=== PATIENT | female | born 2000 | race Caucasian/White ===

== ENCOUNTER 2022-11-01 20:46 | Emergency (ER) | payer MEDICAID, SELFPAY ==
[2022-11-01 20:46] VITALS: BP 135/74; PULSE 112; RESP 18; TEMP 36.6; O2SAT 100; BMI 33.3
--- NOTE | 2022-11-01 20:57 | ED_ITS ---
HPI - Abdominal Pain General: Chief Complaint: Abdominal Pain Stated Complaint: ABD PAIN Time Seen by Provider: 11/01/22 20:53 History of Present Illness: 22-year-old female comes in today with lower abdominal discomfort and pain along with fatigue. Patient also reports some changes in urine. Patient appears nontoxic. Patient appears in no pain. Patient's last menstrual cycle was 16 June. Patient is about 20 weeks . Patient reports no vaginal bleeding. Associated Symptoms: Reports dysuria; Denies constipation, diarrhea, fever(s), nausea and vomiting Review of Systems General: Reports: 10 or more systems reviewed and unremarkable except in HPI and below Const: Denies: fever(s) Card: Denies: chest pain Resp: Denies: dyspnea GI: Denies: nausea, vomiting, diarrhea or constipation : Reports: dysuria and urinary urgency Musc: Denies: neck pain or back pain Skin/Breast: Denies: rash Neuro: Denies: headache(s) Physical Exam Const: COMMON NORMALS: alert HENMT: COMMON NORMALS: normocephalic HEAD & SCALP: normocephalic Neck/C-Spine: COMMON NORMALS: full ROM Resp: COMMON NORMALS: normal respiratory effort and clear to auscultation bilaterally AUSCULTATION: clear to auscultation bilaterally Cardio: COMMON NORMALS: regular rate and regular rhythm RATE: regular rate RHYTHM: regular rhythm GI: COMMON NORMALS: Soft to palpation and non-tender PALPATION: Yes Soft to palpation : COMMON NORMALS: Yes no CVA tenderness BLADDER/KIDNEY EXAM: Yes no CVA tenderness OTHER: heart tones 150 Back/Pelvis: COMMON NORMALS: no CVA tenderness Extremity: COMMON NORMALS: no pedal edema Neuro: SENSORIUM/ORIENTATION: Yes alert Skin: COMMON NORMALS: turgor normal GENERAL SKIN EXAM: turgor normal Course Vital Signs: Vital signs: Vital Signs Temperature 98 F 11/01/22 20:46 Pulse Rate 112 H 11/01/22 20:46 Respiratory Rate 18 11/01/22 20:46 Blood Pressure 135/74 11/01/22 20:46 Pulse Oximetry 100 11/01/22 20:46 MDM - Abdominal Pain Medical Decision Making 22-year-old female comes in today with some lower abdominal pain and difficulty of urination. Patient is a 20 weeks . On exam patient is alert orien lara skin is warm and dry. Vital signs are normal. Differential diagnosis includes but not limited to premature labor, urinary tract infection, round ligament pain, abruptio placenta. Urinalysis had a increased number of white blood cells but a large amount of skin cells. CBC and CMP were unremarkable. heart tones 150. Patient had no abnormal vaginal bleeding or discharge. Since patient does endorse urinary tract infection symptoms with dysuria and frequency we will go ahead and treat with some cephalexin 250 twice a day for 7 days. Patient was given 1 dose in the ER tonight. Patient was encouraged drink plenty of water and fluids use acetaminophen for pain and follow-up with primary care or AUTOMATIC SPINNING LATHE SETTER for further instructions or return to the ER for worsening symptoms. Lab Data 11/01/22 21:00 11/01/22 21:00 Labs/Radiology: Laboratory Results WBC 11.30 10^3/uL (3.29-11.43) 11/01/22 21:00 RBC 4.64 10^6/uL (3.85-5.65) 11/01/22 21:00 Hgb 13.70 g/dL (11.27-16.99) 11/01/22 21:00 Hct 40.0 % (36-47) 11/01/22 21:00 MCV 86.2 fl (85-98) 11/01/22 21:00 MCH 29.5 pg (27-33) 11/01/22 21:00 MCHC 34.3 g/dL (30-55) 11/01/22 21:00 RDW 13.2 % (12.1-15.1) 11/01/22 21:00 Plt Count 251 10^3/cmm (157-399) 11/01/22 21:00 MPV 10.4 fL (7.4-10.4) 11/01/22 21:00 Neut % (Auto) 70.9 % 11/01/22 21:00 Lymph % (Auto) 18.9 % 11/01/22 21:00 [place] % (Auto) 8.0 % 11/01/22 21:00 Eos % (Auto) 1.6 % 11/01/22 21:00 Baso % (Auto) 0.3 % 11/01/22 21: Neut # (Auto) 8.02 10^3/uL (1.8-7.7) H 11/01/22 21:00 Lymph # (Auto) 2.1 10^3/uL (0.8-4.8) 11/01/22 21:00 [place] # (Auto) 0.9 10^3/uL (0.2-0.9) 11/01/22 21:00 Eos # (Auto) 0.2 10^3/uL (0.0-0.8) 11/01/22 21:00 Baso # (Auto) 0.0 10^3/uL (0.0-0.1) 11/01/22 21:00 Nucleated RBC % (auto) 0 % 11/01/22 21:00 Nucleated RBCs # 0.0 /100WBC 11/01/22 21:00 Sodium 138 mmol/L (136-145) 11/01/22 21:00 Potassium 4.1 mmol/L (3.5-5.1) 11/01/22 21:00 Chloride 104 mmol/L (98-107) 11/01/22 21:00 Carbon Dioxide 24 mmol/L (22-29) 11/01/22 21:00 Anion Gap 14.1 (5-19) 11/01/22 21:00 BUN 9 mg/dL (6-20) 11/01/22 21:00 Creatinine 0.5 mg/dL (0.5-0.9) 11/01/22 21:00 GFR Calculation 155.7 mL/min (90-130) H 11/01/22 21:00 Glucose 94 mg/dL (65-115) 11/01/22 21:00 Calculated Osmolality 284 mOsm/kg (285-295) L 11/01/22 21:00 Calcium 9.0 mg/dL (8.5-10.5) 11/01/22 21:00 Total Bilirubin 0.2 mg/dL (0.15-1.2) 11/01/22 21:00 AST 15 U/L (0-32) 11/01/22 21:00 ALT 12 U/L (0-33) 11/01/22 21:00 Alkaline Phosphatase 99 U/L (35-105) 11/01/22 21:00 Total Protein 7.1 g/dL (6.6-8.7) 11/01/22 21:00 Albumin 4.0 g/dL (3.5-5.2) 11/01/22 21:00 Globulin 3.1 g/dL (1.3-4.6) 11/01/22 21:00 Lipase 43 U/L (13-60) 11/01/22 21:00 Ser , Semi-Qnt 20091.00 mIU/mL 11/01/22 21:00 Urine Color Yellow (Yellow) 11/01/22 20:50 Urine Appearance Hazy (CLEAR) A 11/01/22 20:50 Urine pH 5 (5-7) 11/01/22 20:50 Ur Specific [place] 1.020 (1.005-1.030) 11/01/22 20:50 Urine Protein Trace (Negative) 11/01/22 20:50 Urine Glucose (UA) Norm (Normal) 11/01/22 20:50 Urine Ketones Negative (Negative) 11/01/22 20:50 Urine Blood Neg (Negative) 11/01/22 20:50 Urine Nitrate Negative (Negative) 11/01/22 20:50 Urine Bilirubin 1+ (Negative) H 11/01/22 20:50 Urine Urobilinogen Neg mg/dL (Negative) 11/01/22 20:50 Ur Leukocyte Esterase 1+ (Negative) H 11/01/22 20:50 Urine RBC Rare /hpf (0-2) 11/01/22 20:50 Urine WBC 0-4 /hpf (0-5) H 11/01/22 20:50 Ur Squamous Epith Cells 15-25 /hpf (0-5) H 11/01/22 20:50 Amorphous Sediment 2+ /hpf 11/01/22 20:50 Urine Bacteria 1+ /hpf (NONE) H 11/01/22 20:50 Urine Mucus 2+ /hpf 11/01/22 20:50 No radiology studies performed this visit EKG Data EKG 1: EKG interpretation date: 11/01/22 EKG interpretation time: 21:05 Prior EKG tracings: not available for review Interpretation: Mild sinus tachycardia at 110 bpm, regular rate, no ST elevation or ectopy is noted. No prior exam was available for comparison. Computer generated interpretation: Sinus tachycardia, minimal ST depression, abnormal rhythm EKG, unconfirmed report. Discharge Plan Discharge Patient Disposition: Home Clinical Impression: Dysuria during Qualifiers: Trimester: second trimester Qualified Code(s): O26.892 - Other specified related conditions, second trimester Qualifiers: Weeks of gestation: 20 weeks Qualified Code(s): Z3A.20 - 20 weeks gestation of Condition: Stable Prescriptions: New cephalexin 250 mg capsule 250 mg PO BID 7 Days Qty: 14 0RF Discharge Orders: Discharge ED (Routine); Ordered 11/01/22 Ordered By: Hugo Adame Discharge Diet: Usual diet Discharge Activity: Increase activity as tolerated Patient Instructions: Dysuria (ED) Activity Restrictions/Additional Instructions: Drink plenty of water and fluids. Take antibiotic cephalexin 250 mg twice a day for 7 days. Follow-up with primary care in 2 to 3 days for recheck. Return to ED for worsening symptoms such as high fever greater than 100.4, vaginal bleeding, inability to hold fluids down, no urine output within 8 hours, or new concerns. Stand Alone Forms: Work/School Release Coding Level of Care Code ED Analytical Lab Technician for Jerrica Doyle
[2022-11-01 21:18] LABS: Basophils % 0.3 %; Eosinophils # 0.2 10^3/uL (0.0-0.8); Eosinophils % 1.6 %; Lymphocytes # 2.1 10^3/uL (0.8-4.8); Lymphocytes % 18.9 %; Mean Corpuscular HGB Conc 34.3 g/dL (30-55); Mean Corpuscular Hemoglobin 29.5 pg (27-33); Mean Corpuscular Volume 86.2 fl (85-98); Mean Platelet Volume 10.4 fL (7.4-10.4); Monocytes # 0.9 10^3/uL (0.2-0.9); Neutrophils # 8.02 10^3/uL (1.8-7.7); Neutrophils % 70.9 %; Nucleated Red Blood Cells % 0 %; Platelet Count 251 10^3/cmm (157-399); Red Blood Count 4.64 10^6/uL (3.85-5.65); Red Cell Distribution Width 13.2 % (12.1-15.1)
[2022-11-01 21:46] LABS: Add Urine Microscopic? YES; Bilirubin Urine 1+ (Negative); Blood Urine Neg (Negative); Glucose Urine UA Norm (Normal); Ketones Urine Negative (Negative); Leukocyte Esterase Urine 1+ (Negative); Nitrate Urine Negative (Negative); Protein Urine Trace (Negative); Urine Appearance Hazy (CLEAR); Urine Color Yellow (Yellow); Urobilinogen Urine Neg (Negative); pH Urine 5 (5-7)
[2022-11-01 21:47] LABS: Add Urine Culture? No; Amorphous Sediment Urine 2+ /hpf; Bacteria Urine 1+ /hpf; Mucus Urine 2+ /hpf; RBC Urine RARE /hpf (0-2); Squamous Epithelial Cell Urine 15-25 /hpf (0-5); WBC Urine 0-4 /hpf (0-5)
[2022-11-01 21:51] LABS: Alanine Aminotransferase 12 U/L (0-33); Alkaline Phosphatase 99 U/L (35-105); Anion Gap 14.1 (5-19); Aspartate Amino Transferase 15 U/L (0-32); Blood Urea Nitrogen 9 mg/dL (6-20); Carbon Dioxide 24 mmol/L (22-29); Chloride 104 mmol/L (98-107); Globulin 3.1 g/dL (1.3-4.6); Glomerular Filtration Rate 155.7 mL/min (90-130); Glucose 94 mg/dL (65-115); Lipase 43 U/L (13-60); Osmolality Calculated 284 mOsm/kg (285-295); Potassium 4.1 mmol/L (3.5-5.1); Sodium 138 mmol/L (136-145); Total Bilirubin 0.2 mg/dL (0.15-1.2); Total Protein 7.1 g/dL (6.6-8.7)
[2022-11-01 22:11] VITALS: BP 102/63; PULSE 88; O2SAT 99
[2022-11-01] MEDS: cephALEXin 500 mg Capsule PO (22:15)
== END 2022-11-01 22:21 | disposition home or self-care (01) ==
PROVIDERS: Emergency Provider Nurse Practitioner Family
DX: O26.892 Other specified pregnancy related conditions, second trimester (principal); R30.0 Dysuria; Z3A.20 20 weeks gestation of pregnancy
CPT/HCPCS: 80053; 81001; 83690; 84702; 85025; 99283

== ENCOUNTER 2024-06-15 13:54 | Emergency (ER) | payer SELFPAY ==
[2024-06-15 13:55] VITALS: BP 104/70; PULSE 91; TEMP 36.6; O2SAT 98
[2024-06-15 14:18] LABS: Bilirubin Urine 2+ (Negative); Blood Urine 2+ (Negative); Glucose Urine UA Negative (Normal); Ketones Urine 4+ (Negative); Leukocyte Esterase Urine 2+ (Negative); Nitrate Urine Positive (Negative); Protein Urine 2+ (Negative); Urine Appearance Cloudy (CLEAR); Urine Color Dark Yellow (Yellow); pH Urine 5.5 (5-7)
--- NOTE | 2024-06-15 14:19 | W.ED.FEMALGU ---
HPI - Female Genitourinary General: Chief complaint: Urogenital-Female Stated complaint: Urinary Time Seen by Provider: 06/15/24 14:03 Source: patient Mode of arrival: ambulatory Limitations: no limitations History of Present Illness: 0 24-year-old female who states that over the last 2 days she has been having increasing dysuria along with some lower abdominal pain states pain sharp in nature when she urinates it mendoza and is foul-smelling she denies any discharge denies any fevers. Associated symptoms: Reports abdominal pain; Deny headache(s) or nausea Related Data Previous Rx's ?Medication ?Instructions ?Recorded cephalexin 500 mg capsule 500 mg PO TID 7 days #21 caps 06/15/24 naproxen 500 mg tablet (Naprosyn) 500 mg PO BID PRN pain #20 tabs 06/15/24 ondansetron 4 mg disintegrating 4 mg PO Q6H PRN nausea and 06/15/24 tablet vomiting #14 tabs Allergies Allergy/AdvReac Type Severity Reaction Status Date / Time Penicillins Allergy Unknown Verified 06/15/24 14:05 Review of Systems Const: Denies: fever(s), chills, body aches or change in appetite ENMT: Denies: throat pain or dental pain Card: Denies: chest pain Resp: Denies: dyspnea GI: Reports: abdominal pain; Denies: nausea, vomiting or diarrhea : Reports: dysuria Musc: Denies: neck pain or back pain Skin/Breast: Denies: rash Neuro: Denies: headache(s) Physical Exam Const: COMMON NORMALS: no acute distress, patient oriented x3 and healthy appearing HENMT: COMMON NORMALS: normocephalic and atraumatic HEAD & SCALP: normocephalic and atraumatic Eye: COMMON NORMALS: conjunctivae normal CONJUNCTIVA: Yes conjunctivae normal Neck/C-Spine: COMMON NORMALS: full ROM and supple Chest: COMMONS NORMALS: normal inspection of the chest Resp: COMMON NORMALS: normal respiratory effort Cardio: COMMON NORMALS: regular rate, regular rhythm and No murmurs present (Cardio) RATE: regular rate RHYTHM: regular rhythm GI: COMMON NORMALS: Normal to inspection, nondistended, normoactive bowel sounds present, Soft to palpation, non-tender and no masses PALPATION: Yes Soft to palpation Extremity: COMMON NORMALS: normal to inspection and full ROM Neuro: COMMON NORMALS: patient oriented x3, moves all extremities and no focal motor deficits Psych: COMMON NORMALS: mental status grossly normal, Normal thought process present and cooperative THOUGHT PROCESS: Normal thought process present Skin: COMMON NORMALS: no rashes or lesions noted and no wounds GENERAL SKIN EXAM: no rashes or lesions noted Course Vital Signs: Vital signs: Vital Signs Temperature 97.9 F 06/15/24 13:55 Pulse Rate 91 06/15/24 13:55 Blood Pressure 104/70 06/15/24 13:55 Pulse Oximetry 98 06/15/24 13:55 Oxygen Delivery Me thod Room Air 06/15/24 13:55 MDM - Female Medical Decision Making Patient presents here with dysuria does have a UTI abdominal exam is benign no signs of appendicitis will start her on Keflex she has to follow-up with her PCP return if worsening. Medical Records I reviewed the patient's medical records. Lab Data I reviewed the patient's lab results. 06/15/24 14:27 06/15/24 14:27 Laboratory Results WBC 9.67 10^3/uL (3.29-11.43) 06/15/24 14:27 RBC 4.98 10^6/uL (3.85-5.65) 06/15/24 14:27 Hgb 14.30 g/dL (11.27-16.99) 06/15/24 14:27 Hct 44.8 % (36-47) 06/15/24 14:27 MCV 90.0 fl (85-98) 06/15/24 14:27 MCH 28.7 pg (27-33) 06/15/24 14:27 MCHC 31.9 g/dL (30-55) 06/15/24 14:27 RDW 12.8 % (12.1-15.1) 06/15/24 14:27 Plt Count 267 10^3/cmm (157-399) 06/15/24 14:27 MPV 10.5 fL (7.4-10.4) H 06/15/24 14:27 Neut % (Auto) 68.8 % 06/15/24 14:27 Lymph % (Auto) 21.6 % 06/15/24 14:27 [place] % (Auto) 8.2 % 06/15/24 14:27 Eos % (Auto) 0.8 % 06/15/24 14:27 Baso % (Auto) 0.4 % 06/15/24 14:27 Neut # (Auto) 6.65 10^3/uL (1.8-7.7) 06/15/24 14:27 Lymph # (Auto) 2.1 10^3/uL (0.8-4.8) 06/15/24 14:27 [place] # (Auto) 0.8 10^3/uL (0.2-0.9) 06/15/24 14:27 Eos # (Auto) 0.1 10^3/uL (0.0-0.8) 06/15/24 14:27 Baso # (Auto) 0.0 10^3/uL (0.0-0.1) 06/15/24 14:27 Nucleated RBC % (auto) 0 % 06/15/24 14:27 Nucleated RBCs # 0.0 /100WBC 06/15/24 14:27 Sodium 136 mmol/L (136-145) 06/15/24 14:27 Potassium 4.2 mmol/L (3.5-5.1) 06/15/24 14:27 Chloride 101 mmol/L (98-107) 06/15/24 14:27 Carbon Dioxide 22 mmol/L (22-29) 06/15/24 14:27 Anion Gap 17.2 (5-19) 06/15/24 14:27 BUN 11 mg/dL (6-20) 06/15/24 14:27 Creatinine 0.7 mg/dL (0.5-0.9) 06/15/24 14:27 GFR Calculation 103.7 mL/min (90-130) 06/15/24 14:27 Glucose 83 mg/dL (65-115) 06/15/24 14:27 Calculated Osmolality 281 mOsm/kg (285-295) L 06/15/24 14:27 Calcium 9.1 mg/dL (8.5-10.5) 06/15/24 14:27 Total Bilirubin 1.0 mg/dL (0.15-1.2) 06/15/24 14:27 AST 29 U/L (0-32) 06/15/24 14:27 ALT 28 U/L (0-33) 06/15/24 14:27 Alkaline Phosphatase 90 U/L (35-105) 06/15/24 14:27 Total Protein 7.8 g/dL (6.6-8.7) 06/15/24 14:27 Albumin 4.5 g/dL (3.5-5.2) 06/15/24 14:27 Globulin 3.3 g/dL (1.3-4.6) 06/15/24 14:27 HCG, Qual Negative (Negative) 06/15/24 Unknown Urine Color Dark yellow (Yellow) A 06/15/24 Unknown Urine Appearance Cloudy (CLEAR) A 06/15/24 Unknown Urine pH 5.5 (5-7) 06/15/24 Unknown Ur Specific [place] 1.037 (1.005-1.030) H 06/15/24 Unknown Urine Protein 2+ (Negative) A 06/15/24 Unknown Urine Glucose (UA) Negative (Normal) 06/15/24 Unknown Urine Ketones 4+ (Negative) 06/15/24 Unknown Urine Blood 2+ (Negative) A 06/15/24 Unknown Urine Nitrate Positive (Negative) A 06/15/24 Unknown Urine Bilirubin 2+ (Negative) H 06/15/24 Unknown Urine Urobilinogen 2.0 mg/dL (Negative) H 06/15/24 Unknown Ur Leukocyte Esterase 2+ (Negative) A 06/15/24 Unknown Urine RBC 21-50 /hpf (0-2) H 06/15/24 Unknown Urine WBC >100 /hpf (0-5) H 06/15/24 Unknown Ur Squamous Epith Cells 6-10 /hpf (0-5) 06/15/24 Unknown Amorphous Sediment Not Reportable 06/15/24 Unknown Urine Bacteria 4+ /hpf (NONE) H 06/15/24 Unknown Hyaline Casts 9.51 /lpf 06/15/24 Unknown No radiology studies performed this visit Discharge Plan Discharge Patient Disposition: Home Clinical Impression: Urinary tract infection Condition: Stable Prescriptions: New cephalexin 500 mg capsule 500 mg PO TID 7 Days Qty: 21 0RF ondansetron 4 mg tablet,disintegrating 4 mg PO Q6H PRN (Reason: nausea and vomiting) Qty: 14 0RF naproxen [Naprosyn] 500 mg tablet 500 mg PO BID PRN (Reason: pain) Qty: 20 0RF Discharge Orders: Discharge ED (Routine); Ordered 06/15/24 Ordered By: Flaquito Ordonez Discharge Diet: Advance as tolerated Discharge Activity: Resume usual activity Patient Instructions: Urinary Tract Infection in Women (ED) Print Language: Albanian Coding Level of Care Code ED Data Systems Analyst for Jerrica Doyle
[2024-06-15 14:23] LABS: Add Urine Microscopic? YES; Bacteria Urine 4+ /hpf; Hyaline Casts Urine 9.51 /lpf; RBC Urine 21-50 /hpf (0-2); WBC Urine >100 /hpf (0-5)
[2024-06-15] MEDS: HYDROcodone-acetaminophen 5-325 mg Tablet 1 TAB PO (14:27)
[2024-06-15] MEDS: ondansetron hcl ODT 4 mg Tab PO (14:27)
[2024-06-15 14:34] LABS: Basophils % 0.4 %; Eosinophils # 0.1 10^3/uL (0.0-0.8); Eosinophils % 0.8 %; Hematocrit 44.8 % (36-47); Lymphocytes # 2.1 10^3/uL (0.8-4.8); Lymphocytes % 21.6 %; Mean Corpuscular HGB Conc 31.9 g/dL (30-55); Mean Corpuscular Hemoglobin 28.7 pg (27-33); Mean Platelet Volume 10.5 fL (7.4-10.4); Monocytes # 0.8 10^3/uL (0.2-0.9); Monocytes % 8.2 %; Neutrophils # 6.65 10^3/uL (1.8-7.7); Neutrophils % 68.8 %; Nucleated Red Blood Cells % 0 %; Platelet Count 267 10^3/cmm (157-399); Red Blood Count 4.98 10^6/uL (3.85-5.65); Red Cell Distribution Width 12.8 % (12.1-15.1); White Blood Count 9.67 10^3/uL (3.29-11.43)
[2024-06-15 14:35] LABS: Add Urine Culture? Yes; Specific Gravity, Urine 1.037 (1.005-1.030); UA Slide Review UA Slide Review Perf
[2024-06-15 14:48] LABS: Alanine Aminotransferase 28 U/L (0-33); Albumin Level 4.5 g/dL (3.5-5.2); Alkaline Phosphatase 90 U/L (35-105); Anion Gap 17.2 (5-19); Aspartate Amino Transferase 29 U/L (0-32); Blood Urea Nitrogen 11 mg/dL (6-20); Calcium 9.1 mg/dL (8.5-10.5); Carbon Dioxide 22 mmol/L (22-29); Chloride 101 mmol/L (98-107); Creatinine Clr Calc Pharmacy 147.6813; Globulin 3.3 g/dL (1.3-4.6); Glomerular Filtration Rate 103.7 mL/min (90-130); Glucose 83 mg/dL (65-115); Osmolality Calculated 281 mOsm/kg (285-295); Potassium 4.2 mmol/L (3.5-5.1); Sodium 136 mmol/L (136-145); Total Protein 7.8 g/dL (6.6-8.7)
[2024-06-15 14:54] LABS: HCG Qualitative Urine. Negative (Negative)
[2024-06-15] MEDS: cefTRIAXone 1,000 MG in water for injection-sterile 2.1 ML 2.1 MG IM (15:05)
== END 2024-06-15 15:27 | disposition home or self-care (01) ==
PROVIDERS: Emergency Provider Emergency Medicine
DX: N39.0 Urinary tract infection, site not specified (principal)
CPT/HCPCS: 36415; 80053; 81001; 81025; 85025; 87086; 96372; 99284; J0696; J9999; Q0162

== ENCOUNTER 2024-11-25 11:35 | Emergency (ER) | payer SELFPAY ==
[2024-11-25 11:46] VITALS: BP 107/77; PULSE 100; RESP 18; TEMP 36.7; O2SAT 97; BMI 31.4
[2024-11-25 12:17] LABS: Glucose Urine UA Negative (Normal); Nitrate Urine Negative (Negative); Specific Gravity, Urine 1.011 (1.005-1.030)
[2024-11-25 12:22] LABS: Add Urine Microscopic? YES; UA Manual Slide Review YES
--- NOTE | 2024-11-25 12:56 | ED_ITS ---
HPI - Abdominal Pain General: Chief Complaint: Abdominal Pain Stated Complaint: R ABD pain going into back Time Seen by Provider: 11/25/24 12:28 History of Present Illness: Patient is a 24-year-old female presents to the ED today with 24 to 48 hours of right-sided abdominal pain and right flank pain. She does have a history of renal colic. She also has a history of UTIs and kidney infections. She admits to nausea without emesis. She does have dysuria. No new sexual partners/ . Patient stated last urinary tract infection was in June. Culture notes mixed urinary magda. Patient notes that in June she did have antibiotics prior to the culture. Associated Symptoms: Reports dysuria and nausea; Denies chills, diarrhea, fever(s) and vomiting Related Data Previous Rx's ?Medication ?Instructions ?Recorded naproxen 500 mg tablet (Naprosyn) 500 mg PO BID PRN pa in #20 tabs 06/15/24 ondansetron 4 mg disintegrating 4 mg PO Q6H PRN nausea and 06/15/24 tablet vomiting #14 tabs cefdinir 300 mg capsule 300 mg PO BID 10 days #20 ca ps 11/25/24 ondansetron 4 mg disintegrating 4 mg PO Q8H PRN nausea and 11/25/24 tablet vomiting 4 days #14 tabs Allergies Allergy/AdvReac Type Severity Reaction Status Date / Time Penicillins Allergy Unknown Verified 06/15/24 14:05 Review of Systems General: Reports: 10 or more systems reviewed and unremarkable except in HPI and below Const: Denies: fever(s), chills, body aches or change in appetite ENMT: Denies: throat pain or dental pain Card: Denies: chest pain Resp: Denies: dyspnea GI: Reports: abdominal pain and nausea; Denies: vomiting or diarrhea : Reports: dysuria Musc: Denies: neck pain or back pain Skin/Breast: Denies: rash Neuro: Denies: headache(s) Physical Exam Const: COMMON NORMALS: no acute distress, patient oriented x3 and healthy appearing HENMT: COMMON NORMALS: normocephalic and atraumatic HEAD & SCALP: normocephalic and atraumatic Eye: COMMON NORMALS: conjunctivae normal CONJUNCTIVA: Yes conjunctivae normal Neck/C-Spine: COMMON NORMALS: full ROM and supple Chest: COMMONS NORMALS: normal inspection of the chest Resp: COMMON NORMALS: normal respiratory effort Cardio: COMMON NORMALS: regular rate, regular rhythm and No murmurs present (Cardio) RATE: regular rate RHYTHM: regular rhythm GI: COMMON NORMALS: Normal to inspection, nondistended, normoactive bowel sounds present, Soft to palpation and no masses PALPATION: Yes Soft to palpation and Yes Tenderness to palpation present (GI) Details: RUQ : BLADDER/KIDNEY EXAM: Yes CVA tenderness on the right Back/Pelvis: GENERAL BACK: Yes CVA tenderness Extremity: COMMON NORMALS: normal to inspection and full ROM Neuro: COMMON NORMALS: patient oriented x3, moves all extremities and no focal motor deficits Psych: COMMON NORMALS: mental status grossly normal, Normal thought process present and cooperative THOUGHT PROCESS: Normal thought process present Skin: COMMON NORMALS: no rashes or lesions noted and no wounds GENERAL SKIN EXAM: no rashes or lesions noted Course Vital Signs: Vital signs: Vital Signs Temperature 98.1 F 11/25/24 11:46 Pulse Rate 100 11/25/24 11:46 Respiratory Rate 18 11/25/24 11:46 Blood Pressure 107/77 11/25/24 11:46 Pulse Oximetry 97 11/25/24 11:46 Oxygen Delivery Me thod Room Air 11/25/24 11:46 MDM - Abdominal Pain Medical Decision Making Patient is a pleasant 24-year-old female that presents to the emergency room with dysuria for 24-48 hours, right flank pain, and right upper quadrant abdomen pain. Urine analysis does show leukocyte esterase 3+, 40?55 WBCs per CFU, with minimal amount of red cells. This is less likely renal colic and more likely associated with UTI/question of pyelonephritis. She does have nausea, which will be controlled with Zofran. She will have Rocephin here, urine will be cultured, and cefdinir has been sent to the pharmacy. All of her questions answered her satisfaction. Lab Data Labs/Radiology: Laboratory Results Urine Color Yellow (Yellow) 11/25/24 12:09 Urine Appearance Cloudy (CLEAR) A 11/25/24 12:09 Urine pH 6.0 (5-7) 11/25/24 12:09 Ur Specific [place] 1.011 (1.005-1.030) 11/25/24 12:09 Urine Protein 2+ (Negative) A 11/25/24 12:09 Urine Glucose (UA) Negative (Normal) 11/25/24 12:09 Urine Ketones Negative (Negative) 11/25/24 12:09 Urine Blood 2+ (Negative) A 11/25/24 12:09 Urine Nitrate Negative (Negative) 11/25/24 12:09 Urine Bilirubin Negative (Negative) 11/25/24 12:09 Urine Urobilinogen 1.0 mg/dL (Negative) 11/25/24 12:09 Ur Leukocyte Esterase 3+ (Negative) A 11/25/24 12:09 Urine RBC 5-10 /hpf (0-2) H 11/25/24 12:09 Urine WBC 40-55 /hpf (0-5) H 11/25/24 12:09 Ur Squamous Epith Cells 5-10 /hpf (0-5) H 11/25/24 12:09 Amorphous Sediment Not Reportable 11/25/24 12:09 Urine Bacteria 2+ /hpf (NONE) H 11/25/24 12:09 No radiology studies performed this visit Discharge Plan Discharge Patient Disposition: Home Clinical Impression: Pyuria Condition: Stable Prescriptions: New ondansetron 4 mg tablet,disintegrating 4 mg PO Q8H PRN (Reason: nausea and vomiting) 4 Days Qty: 14 0RF cefdinir 300 mg capsule 300 mg PO BID 10 Days Qty: 20 0RF No Action ondansetron 4 mg tablet,disintegrating 4 mg PO Q6H PRN (Reason: nausea and vomiting) Qty: 14 0RF naproxen [Naprosyn] 500 mg tablet 500 mg PO BID PRN (Reason: pain) Qty: 20 0RF Discharge Orders: Discharge ED (Routine); Ordered 11/25/24 Ordered By: Dinora Solano Discharge Diet: Full LIquid Discharge Activity: Resume usual activity Patient Instructions: Urinary Tract Infection in Women (ED), Patient Portal & Gurjit Instructions Activity Restrictions/Additional Instructions: - Wipe front to back. Urinate before and after sexual intercourse - Return to ED with worsening nausea, vomiting, worsening right flank pain, temperature greater than 100.4 ?F - Your antibiotics/cefdinir, and your nausea medication/Zofran/ondansetron have been sent to your pharmacy. Next dose is due tonight for your antibiotic. Your Zofran can be utilized every 6-8 hours as needed for nausea. Zofran does cause increasing constipation. Obtain a probiotic or eat active culture yogurt to avoid infectious diarrhea - Full liquid diet is recommended until your nausea resolves. Print Language: Lithuanian Coding Level of Care Code ED Distribution Agent for Jerrica Doyle
[2024-11-25] MEDS: cefTRIAXone 1,000 MG in water for injection-sterile 2.1 ML 1 MG IM (13:07)
[2024-11-25 13:13] VITALS: BP 108/90; PULSE 78; RESP 14; O2SAT 99
[2024-11-25 13:36] VITALS: BP 130/78; PULSE 77; O2SAT 98
== END 2024-11-25 13:38 | disposition home or self-care (01) ==
PROVIDERS: Emergency Provider Physician Assistant
DX: R82.81 Pyuria (principal)
CPT/HCPCS: 81001; 87086; 87186; 96372; 99284; J0696; J9999